=== PATIENT | male | born 1930 | race Two or more races ===

== ENCOUNTER 2018-01-07 04:49 | Emergency (ER) | payer OTHER ==
[~2018-01-07] VITALS: Ht 160 cm; Wt 63.5 kg
[~2018-01-07 04:49] MED LIST: APAP/HYDROCODON1 T13 PO; ARI10 PO; BG MC; CALCIUM 600-D 61 TA1 PO; COL100 PO; COQ10 IN OIL1 SGL PO; CRESTOR PO; ECO81 PO; GINGKO BILOBA; GLU5 PO; HUMULIN R100 U/1 M1 SC; JANUVIA100 M1 PO; MEGL PO; MICARDIS PO; NAMENDA XR28 MG PO; NAMENDA10 M2; NAMZARIC PO; NUEDEXTA1 CAP PO; PROTECT IRON1 TAB PO; STARLIX PO; ULORIC PO; ULORIC40 M1 PO; XARELTO10 M1 PO
[2018-01-07 04:55] VITALS: Ht 160 cm; Wt 63.5 kg
[2018-01-07 07:07] VITALS: BP 140/65
== END 2018-01-07 07:07 | disposition home or self-care (01) ==
LOC: ED 04:49
DX: S01.01XA Laceration without foreign body of scalp, initial encounter (principal); I10 Essential (primary) hypertension; E11.9 Type 2 diabetes mellitus without complications; F03.90 Unspecified dementia, unspecified severity, without behavioral disturbance, psychotic disturbance, mood disturbance, and anxiety; W22.8XXA Striking against or struck by other objects, initial encounter; Y93.89 Activity, other specified; Y92.89 Other specified places as the place of occurrence of the external cause; Y99.8 Other external cause status

== ENCOUNTER 2018-05-14 20:32 | Inpatient (IN) | payer OTHER ==
[~2018-05-14] VITALS: Ht 162.6 cm; Wt 64.5 kg
[2018-05-14 21:36] LABS: BASOPHIL % 0.3 % (0-2); PLATELET COUNT 373 x10^3mcL (130-400)
[2018-05-14 21:43] LABS: RED CELL DISTRIBUTION WIDTH 18.8 % (11.5-14.5)
[2018-05-14 21:45] LABS: CALCIUM 9.8 mg/dL (8.5-10.1); CARBON DIOXIDE 24.7 mmol/L (21-32); CHLORIDE SERUM 101 mmol/L (98-107); CREATININE SERUM 1.3 mg/dL (0.7-1.3); GLUCOSE SERUM 322 mg/dL (74-106); POTASSIUM SERUM 4.2 mmol/L (3.5-5.1); SODIUM SERUM 136 mmol/L (136-145)
[2018-05-14 21:52] LABS: ALBUMIN 3.1 g/dL (3.4-5.0); ALKALINE PHOSPHATASE 79 U/L (46-116); ALT/SGPT 16 U/L (16-63); AST/SGOT 15 U/L (15-37); BILIRUBIN TOTAL 0.2 mg/dL (0.20-1.00); LIPASE 1240 IU/L (73-393); TOTAL PROTEIN, SERUM 7.7 g/dL (6.4-8.2)
[2018-05-14 22:01] LABS: microscopic required? NO
[2018-05-14] MEDS ORDERED: LINZESS290 MCG PO (22:10)
[2018-05-14] MEDS ORDERED: JANUVIA100 M1 PO (22:10)
[2018-05-14 22:11] LABS: UA SPECIFIC GRAVITY >=1.030 (1.005-1.035); urine erythrocyte NEGATIVE (NEGATIVE)
[2018-05-14] MEDS ORDERED: NATEGLINIDE60 M1 PO (22:11)
[2018-05-14] MEDS ORDERED: MIDODRINE HCL10 MG PO (22:11)
[2018-05-14] MEDS ORDERED: GABAPENTIN100 M2 PO (22:12)
[2018-05-14] MEDS ORDERED: XARELTO10 M1 PO (22:12)
[2018-05-14 23:32] LABS: AMPHETAMINE QUAL UR NONE DETECTED (See below)
[2018-05-14 23:39] LABS: MAGNESIUM 1.8 mg/dL (1.8-2.4); PHOSPHOROUS 2.9 mg/dL (2.5-4.9)
[2018-05-14 23:41] LABS: CHOLESTEROL/HDL RATIO 7.5
[2018-05-14 23:45] LABS: T3 TOTAL 0.91 ng/mL
[2018-05-14 23:46] LABS: FREE T4 0.96 ng/dL (0.76-1.46); FREE THYROXINE INDEX 2.4 ug/dL (1.4-4.5); T4(THYROXINE) 7.7 ug/dL (4.7-13.3)
[2018-05-14] MEDS ORDERED: NEURONTIN100 MG PO (23:53)
[2018-05-14] MEDS ORDERED: JANUMET 50-5001 EACH PO (23:59)
[2018-05-15 00:22] VITALS: BP 150/72
[2018-05-15 00:26] VITALS: Ht 162.6 cm; Wt 64.5 kg
[2018-05-15 05:35] VITALS: BP 123/60
[2018-05-15 07:16] LABS: BASOPHIL % 0.3 % (0-2); PLATELET COUNT 293 x10^3mcL (130-400); RED CELL DISTRIBUTION WIDTH 18.5 % (11.5-14.5)
[2018-05-15 07:41] LABS: CALCIUM 9.2 mg/dL (8.5-10.1); CARBON DIOXIDE 24.2 mmol/L (21-32); CHLORIDE SERUM 105 mmol/L (98-107); CREATININE SERUM 1.1 mg/dL (0.7-1.3); GLUCOSE SERUM 177 mg/dL (74-106); SODIUM SERUM 139 mmol/L (136-145)
[2018-05-15 09:06] VITALS: BP 126/69
[2018-05-15 12:35] VITALS: BP 113/58
[2018-05-15 17:06] VITALS: BP 113/58
== END 2018-05-15 17:35 | disposition home or self-care (01) | DRG 438 ==
LOC: ED 20:32 → DU 22:45
PROVIDERS: Emergency Medicine; Internal Medicine
DX: K85.90 Acute pancreatitis without necrosis or infection, unspecified (principal); N17.0 Acute kidney failure with tubular necrosis; I42.9 Cardiomyopathy, unspecified; D68.69 Other thrombophilia; E11.65 Type 2 diabetes mellitus with hyperglycemia; E78.5 Hyperlipidemia, unspecified; F03.90 Unspecified dementia, unspecified severity, without behavioral disturbance, psychotic disturbance, mood disturbance, and anxiety; I95.1 Orthostatic hypotension; Z85.46 Personal history of malignant neoplasm of prostate; Z79.84 Long term (current) use of oral hypoglycemic drugs; Z86.718 Personal history of other venous thrombosis and embolism
CPT/HCPCS: 82962; 83880; 84439; J7030; Q0092

== ENCOUNTER 2019-05-11 11:30 | Inpatient (IN) | payer OTHER ==
[~2019-05-11] VITALS: Ht 162.6 cm; Wt 57.0 kg
[~2019-05-11 11:30] MED LIST changes: +GABAPENTIN100 M2 PO; +JANUMET 50-5001 EACH PO; +LINZESS290 MCG PO; +MIDODRINE HCL10 MG PO; +NATEGLINIDE60 M1 PO; +NEURONTIN100 MG PO
[2019-05-11 11:33] VITALS: Ht 162.6 cm; Wt 57.0 kg
--- NOTE | 2019-05-11 11:39 | NUR ---
PT BIBA FROM HOME DUE TO PT GOING ON A WALK WITH CAREGIVER AND BECAME [place]. PER MEDIC CAREGIVER STS THAT PT HAD A NEAR SYNCOPAL EPISODE BUT NEVER HAVE ANY LOC. PER MEDIC PT WAS SITTING WHEN HE FELT FAINT AND SLID TO THE FLOOR OF THE CAR. PT STS THAT HE HAS NO COMPLAINTS AT THIS TIME. PT STS THAT HE NEVE GOES ON WALKS SO "MY BP MUST HAVE DROPPED". PER MEDIC BG232. PT PLACED ON FULL CM. VSS. RESP E/U. PT DENIES ANY CHEST PAIN AT THIS TIME. PT IS [id number]. -FACIAL DROOP, +EQUAL DIRECTOR OF MEDIA, -DRIFT. WILL CONTINUE TO MONITOR.
--- NOTE | 2019-05-11 12:18 | NUR ---
LAB AT BEDSIDE.
--- NOTE | 2019-05-11 12:35 | NUR ---
XRAY AT BEDSIDE.
[2019-05-11 12:43] LABS: microscopic required? YES; urine erythrocyte TRACE (NEGATIVE)
[2019-05-11 12:43] LABS: CALCIUM 9.4 mg/dL (8.5-10.1); CARBON DIOXIDE 28.1 mmol/L (21-32); CHLORIDE SERUM 103 mmol/L (98-107); CREATININE SERUM 1.1 mg/dL (0.7-1.3); GLUCOSE SERUM 222 mg/dL (74-106); POTASSIUM SERUM 4.9 mmol/L (3.5-5.1); SODIUM SERUM 139 mmol/L (136-145)
[2019-05-11 12:49] LABS: ALKALINE PHOSPHATASE 91 U/L (46-116); ALT/SGPT 16 U/L (16-63); AST/SGOT 9 U/L (15-37); BILIRUBIN TOTAL 0.25 mg/dL (0.20-1.00); CHOLESTEROL 233 mg/dL (<200); HDL CHOLESTEROL 57 mg/dL (40-60); TOTAL PROTEIN, SERUM 7.8 g/dL (6.4-8.2)
[2019-05-11 12:58] LABS: BASOPHIL % 0.1 % (0-2)
[2019-05-11 13:18] LABS: PLATELET COUNT 411 x10^3mcL (130-400)
--- NOTE | 2019-05-11 13:35 | NUR ---
PACEMAKER NOTED ON LT CHEST.
--- NOTE | 2019-05-11 14:39 | NUR ---
REPORT GIVEN TO GAVINO DENIS, TO ASSUME CARE OF PT.
[2019-05-11 15:25] VITALS: BP 128/71
--- NOTE | 2019-05-11 15:37 | NUR ---
RECEIVED PT FROM ER, PT ADMIT FOR NEAR SYNCOPE, DEFIBRILATOR, NON FUNCTIONING, PT IS A/O X2, ONLY NAME AND PLACE, VERY FORGETFUL. DENY ANY HEADACHE OR DIZZINESS. RIGHT EYE BLIND. LUNG SOUND CLEAR BILATERAL, NO COUGH, NO SOB. PT IS ON TELE 10, NSR, DEFIBRILATOR AT LEFT UPPER CHEST. DENY ANY CHEST PAIN OR DISCOMFORT, BOWEL SOUND PRESENT ALL 4 QUADRANTS, NO DISTENTION, NO TENDER. PEDAL PULSE PRESENT BOTH FEET, TRACE EDEMA BLE. IV AT RIGHT AC, NO LEAKING, NO INFILTRAITON. ALL ADLS ASSIST, ALL NEED MET, CALL LIGHT IN REACH, WILL CONTINUE TO MONITOR.
--- NOTE | 2019-05-11 15:56 | NUR ---
RECEIVED PT CIRA ROACH.AAOX2. PERSON AND PLACE.FORGETFUL.HISTORY OF DEMENTIA.LUNGS CLEAR.ON SR ON THE MONITOR.DAUGHTER AT BEDSIDE.CALL LIGHT WITHIN REACH.INSTRUCTED TO CALL FOR ANY PAIN/DISCOMFORT.WILL CONTINUE TO MONITOR PT.
[2019-05-11 16:41] LABS: CHOLESTEROL/HDL RATIO 4.2
--- NOTE | 2019-05-11 17:18 | NUR ---
RECEIVED T.O. TO INTERROGATE AICD. PATIENT AND FAMILY MEMBER AT BEDSIDE MADE AWARE, INFORMATION CARD NOT WITH PATIENT/FAMILY BUT INFORMATION PROVIDED OF MD WHO PERFORMED AICD PLACEMENT. DR ADDIS DINERO , BOX FULL. OFFICE LINE BUSY.
--- NOTE | 2019-05-11 18:37 | NUR ---
NO SIGNIFICANT CHANGE NOTED.WILL ENDORSE TO NEXT SHIFT.
[2019-05-11 18:56] LABS: AMPHETAMINE QUAL UR NONE DETECTED (See below)
--- NOTE | 2019-05-11 19:03 | NUR ---
CALLED [employer] REGARDING THE DRSaniya CASH INTERROGATED. SPOKE TO PAOLA. REQUEST FOR INTERROGATED FOR TONIGHT. HE STATE HE WILL SEND THE MESSAGE TO [facility] TO CONNECT US. WILL CONTNIUE TO MONITOR THE PT.
--- NOTE | 2019-05-11 19:25 | NUR ---
[employer] TECH TALKING TO KATHLEEN AT THIS TIME,ABOUT PATIENT DEFIBRILLATOR.
--- NOTE | 2019-05-11 19:29 | NUR ---
TALKED TO [employer] REPRESENTIVE. RAMOS, REGARDING THE AICD INTERRIGATOR. PER RACHEL, THE [employer] INTERRIGATE WE HAD IN THE STATION IS ABLE TO INERRIGATE BOTH PACE MAKER AND AICD, SHE STATE IF ITS NOT WORKING, CALL HER AT [phone], SHE WILL COME TOMORROW MORNING.
--- NOTE | 2019-05-11 19:32 | NUR ---
VLADIMIR,LABORER [place] MACHINE OF [employer] [phone].
--- NOTE | 2019-05-11 19:36 | NUR ---
SHIFT REASSESSMENT DONE.PATIENT ALERT AND OREINTED,FAMILY AT BEDSIDE,VERY SUPPORTIVE OF CARE.PATIENT R EYE BLIND,ASSIST PRN ADLS.AMBULATORY,ASSIST.LAC HEPLOCK INTACT.NO IVF.TELE 10 SR.NO CHEST PAIN.SKIN INTACT.BLE EDEMA NOTED.SCD ORDERED.VOIDING.NO PAIN.CALL LIGHT IN REACH.
[2019-05-11 20:47] VITALS: BP 116/52
--- NOTE | 2019-05-11 22:32 | NUR ---
RECEIVED THE CALL FROM VLADIMIR FROM [employer], STATE SHE REVEIW THE REPORT, EVERY THING IS NORMAL AND ALSO FAX THE REPORT TO US, ATTACH THE REPORT TO THE CHART.
--- NOTE | 2019-05-11 22:33 | NUR ---
DEFIBRILLATOR INTERROGATED/DIAMANTE,NEGATIVE PER VLADIMIR.[employer] TECH DEPARTMENT EDITOR.
--- NOTE | 2019-05-11 22:49 | NUR ---
DAUGHTER HERE,STAYING FOR TONIGHT.
--- NOTE | 2019-05-12 03:51 | NUR ---
CHECKED AT INTERVALS FOR NEEDS AND SAFETY.DAUGHTER HELP HIM WITH ADL'S.CALL LIGHT IN REACH.
[2019-05-12 05:55] VITALS: BP 117/58
[2019-05-12 06:34] LABS: PLATELET COUNT 348 x10^3mcL (130-400)
[2019-05-12 06:38] LABS: CALCIUM 8.5 mg/dL (8.5-10.1); CARBON DIOXIDE 28.6 mmol/L (21-32); CHLORIDE SERUM 106 mmol/L (98-107); CREATININE SERUM 1.1 mg/dL (0.7-1.3); GLUCOSE SERUM 126 mg/dL (74-106); POTASSIUM SERUM 4.1 mmol/L (3.5-5.1); SODIUM SERUM 142 mmol/L (136-145)
[2019-05-12 07:01] LABS: BASOPHIL % 0 % (0-2)
--- NOTE | 2019-05-12 07:30 | NUR ---
RECEIVED PATIENT SITTING UP IN BED WITH DAUGHTER AT BEDSIDE. ALERT ORIENTED, FORGETFUL AT TIMES. HL PATENT, FLUSHED WELL. RESP EVEN AND UNLABORED, LUNGS CLEAR ON ROOM AIR. TELE 10 SR. AMBULATES WITH ASSIST. NO ACUTE DISTRESS NOTED.
[2019-05-12 07:37] VITALS: BP 115/57
--- NOTE | 2019-05-12 11:45 | NUR ---
PER DR MILLER, PATIENT DOES NOT NEED TO STAY IN HOPITAL TO BE SEEN BY DR ALI. COLEMAN TO BE DISCHARGED HOME.
[2019-05-12 11:52] VITALS: BP 131/59
[2019-05-12 12:00] VITALS: BP 131/59
--- NOTE | 2019-05-12 12:00 | NUR ---
I HAVE REVIEWED THE DATA COLLECTION BY SKILLED LABOR (NAME): ENTERED ON (DATE/TIME): I CONCUR WITH THE DATA AND ANY EXCEPTIONS OR COMMENTS ARE LISTED BELOW: PATIENT'S PLAN OF CARE WAS DISCUSSED AND REVIEWED WITH SKILLED LABOR: Alonzo Perdomo
--- NOTE | 2019-05-12 12:22 | NUR ---
PATIENT READY FOR D/C HOME. HL AND TELE DC'D. DISCHARGE INSTRUCITONS GIVEN TO PATIENT AND HIS DAUGHTER. EDUCATION PROVIDED. CONDITON APPEARS STABLE.
== END 2019-05-12 12:55 | disposition home or self-care (01) | DRG 312 ==
LOC: ED 11:30 → DU 13:49 → EDBEDREQ 13:49 → DU 15:03
PROVIDERS: Emergency Medicine; ADMIT Internal Medicine
DX: R55 Syncope and collapse (principal); I42.9 Cardiomyopathy, unspecified; I49.9 Cardiac arrhythmia, unspecified; E86.0 Dehydration; E11.65 Type 2 diabetes mellitus with hyperglycemia; I10 Essential (primary) hypertension; F03.90 Unspecified dementia, unspecified severity, without behavioral disturbance, psychotic disturbance, mood disturbance, and anxiety; I25.10 Atherosclerotic heart disease of native coronary artery without angina pectoris; Z68.23 Body mass index [BMI] 23.0-23.9, adult; Z79.84 Long term (current) use of oral hypoglycemic drugs; Z95.810 Presence of automatic (implantable) cardiac defibrillator
CPT/HCPCS: 82962; G0378; J7030; Q0092